=== PATIENT | female | born 1980 | race Caucasian/White ===

== ENCOUNTER 2017-05-15 08:33 | Emergency (ER) | payer BC, SELFPAY ==
[2017-05-15] MEDS ORDERED: Iopamidol 370 76% 100 ML VIAL ONE (09:00)
[2017-05-15 09:01] LABS: Bilirubin Negative (Negative); Blood, Urine Moderate (Negative); Clarity Clear (Clear); Glucose, Urine (Dipstick) 100 mg/dL (Negative); Leukocyte Negative (Negative); Nitrite Negative (Negative); Protein, Urine (Dipstick) Negative (Neg-Trace); Urobilinogen 0.2 mg/dL (0.2-1.0)
[2017-05-15] MEDS ORDERED: Magnesium Citrate 300 ML BOT ONE (09:03)
[2017-05-15 09:05] LABS: Pregnancy Test - Urine (BHCG) Negative (Negative); Pregu Control Background? CLEAR/WHITE (CLR/WHITE); Pregu Control Bar Appear? YES (CONTROL BAR)
[2017-05-15 09:13] LABS: Bacteria/HPF None Seen HPF (None Seen); RBC/HPF 0-3 HPF (0-3); Squamous Epithelial 0-3 HPF (0-3); WBC/HPF 0-3 HPF (0-3)
[2017-05-15 09:24] LABS: #Basophils 0.1 thou/uL (0.0-0.2); #Eosinphils 0.3 thou/uL (0.0-0.7); #Lymphocytes 1.9 thou/uL (1.20-3.40); #Monocytes 0.6 thou/uL (0.11-0.59); #Neutrophils 4.6 thou/uL (1.40-6.50); %Basophils 1.2 % (0.0-1.0); %Eosinophils 3.5 % (0.0-10.0); %Lymphocytes 25.4 % (21.0-51.0); %Monocytes 8.1 % (0.0-10.0); %Neutrophils 61.7 % (42.0-75.0); Hemoglobin 13.1 g/dL (12.0-16.0); Mean Corpuscular Hemoglobin 31.5 pg (27.0-31.0); Mean Platelet Volume 6.3 fL (7.4-10.4); Platelet Count 293 thou/uL (130-400); RBC Distribution Width 10.7 % (11.5-14.5); Red Blood Cell (RBC) Count 4.17 mill/uL (4.20-5.40); White Blood Cell (WBC) Count 7.5 thou/uL (4.8-10.8)
[2017-05-15 09:35] LABS: ALT (SGPT) 18 U/L (8-55); AST (SGOT) 14 U/L (5-34); Albumin 4.4 g/dL (3.5-5.0); Alkaline Phosphatase 62 U/L (40-150); Anion Gap 13 mmol/L (10-20); BUN (Urea Nitrogen) 9 mg/dL (7.0-18.7); Bilirubin, Total 0.5 mg/dL (0.2-1.2); Calc. Creatinine Clearance 0 mL/min (70-130); Calcium 9.2 mg/dL (7.8-10.44); Carbon Dioxide 21 mmol/L (22-29); Chloride 106 mmol/L (98-107); Estimated GFR-MDRD Greater than 90; Globulin 3.2 g/dL (2.4-3.5); Glucose 182 mg/dL (70-105); Lipase 20 U/L (8-78); Potassium 4.2 mmol/L (3.5-5.1); Protein, Total 7.6 g/dL (6.0-8.3); Sodium 136 mmol/L (136-145)
[2017-05-15] MEDS ORDERED: Ketorolac Tromethamine 30 MG/ML VIAL ONE (10:07)
--- NOTE | 2017-05-15 10:44 | CT ---
CT ABDOMEN AND PELVIS WITH IV CONTRAST: INDICATIONS: History of decreased bowel movements and abdominal pain. FINDINGS: The lung bases are clear. No focal hepatic lesion is evident. The spleen, pancreas, and adrenal gla nds are normal appearing. There are numerous stones within the gallbladder. No focal regional lesio n is evident. The left kidney is slightly more prominent than the right kidney. No hydronephrosis i s evident. No free fluid or enlarged lymph nodes are evident. There is a moderate amount of retaine d stool within the colon. There is some slight inflammatory stranding seen within the right aspect o f the hemipelvis with a small amount of free fluid. There are multiple small follicles within the vi sualized left and right adnexa. The visualized uterus is unremarkable. The rectum and perirectal so ft tissues are unremarkable. The bladder is decompressed. No drainable fluid collection is evident. The appendix is not definitely visualized. There is scattered degenerative and osteoarthritic change. IMPRESSION: 1. Nonspecific mild fluid with inflammatory stranding involving the right hemipelvis. Findings may reflect sequela of a ruptured cyst. Pelvic ultrasound may be helpful for additional evaluation. 2. Nonvisualization of the appendix. 3. Cholelithiasis. 4. Slight asymmetric size of the left and right kidney, which is likely a normal variant. POS: GLEN
== END 2017-05-15 10:39 | disposition home or self-care (01) ==
LOC: SCSER 08:33
DX: K59.00 Constipation, unspecified (principal); K80.20 Calculus of gallbladder without cholecystitis without obstruction; E11.9 Type 2 diabetes mellitus without complications; I10 Essential (primary) hypertension; Z79.84 Long term (current) use of oral hypoglycemic drugs; Z79.899 Other long term (current) drug therapy
CPT/HCPCS: 74177; 80053; 81003; 81015; 81025; 83690; 85025; 96361; 96374; J1885